=== PATIENT | female | born 1960 | race Caucasian/White ===

== ENCOUNTER 2018-10-10 10:50 | Outpatient (CLI) | payer BC ==
--- NOTE | 2018-10-10 11:39 | ULT ---
FThyroid ultrasound: 10/10/2018 COMPARISON: None HISTORY: Hypothyroidism. TECHNIQUE: Multiplanar grayscale sonographic imaging of the thyroid gland obtained. FINDINGS: The thyroid parenchyma is heterogeneous and the thyroid gland is quite small, the isthmus m easuring 2 mm in AP dimension, the right lobe measuring 1.6 x 0.6 x 0.6 cm and the left lobe measurin g 1.4 x 0.3 x 0.6 cm. No discrete thyroid nodule is appreciated. IMPRESSION: Very small heterogeneous thyroid gland. No discrete thyroid nodules.
== END 2018-10-10 10:51 | disposition home or self-care (01) ==
LOC: SCSULT 10:50
PROVIDERS: ATTEND Internal Medicine Geriatric Medicine
DX: E03.9 Hypothyroidism, unspecified (principal)
CPT/HCPCS: 76536